=== PATIENT | female | born 1975 | race Caucasian/White ===

== ENCOUNTER → 2024-02-13 12:19 | Outpatient (CLI) | payer OTHER, SELFPAY ==
[2024-02-13 14:19] LABS: Influenza A - CEPHEID Flu A NEGATIVE (NEGATIVE); Influenza B - CEPHEID Flu B NEGATIVE (NEGATIVE); Respiratory Syncytial Virus Negative (Negative)
[2024-02-13 14:21] LABS: COVID-19 CEPHEID 4-PLEX PCR Negative (Negative)
== END ==
PROVIDERS: PCP Student in an Organized Health Care Education/Training Program; Visit Provider Physician Assistant
DX: J02.9 Acute pharyngitis, unspecified (principal); R05.1 Acute cough
CPT/HCPCS: 0241U; 87070

== ENCOUNTER → 2024-04-10 09:53 | Outpatient (CLI) | payer OTHER, SELFPAY ==
[2024-04-10 10:48] LABS: Add Manual Diff / Slide Review NO; Basophils Absolute Auto 0 /uL (0-100); Basophils Percent Auto 0.5 % (0-2); Eosinophils Absolute Auto 200 /uL (0-450); Eosinophils Percent Auto 1.9 % (2-4); Hematocrit 43.5 % (36-46); Hemoglobin 14.6 g/dL (12.0-16.0); Lymphocytes Absolute Auto 4600 /uL (1100-4500); Mean Corpuscular HGB Conc 33.4 % (30-36); Mean Corpuscular Hemoglobin 29.2 PG (26-34); Mean Corpuscular Volume 87.4 fL (80-100); Monocytes Absolute Auto 500 /uL (0-900); Monocytes Percent Auto 5.4 % (3-14); Neutrophils Absolute Auto 3900 /uL (1500-7000); Neutrophils Percent Auto 42.2 % (50-75); Platelet Count 230 X10^3/uL (150-400); Red Blood Cell Count 4.98 X10^6/uL (4.0-5.2); Red Cell Distribution Width 14.8 % (11.6-14.8); White Blood Cell Count 9.2 X10^3/uL (4.5-11.0)
[2024-04-10 11:14] LABS: Alanine Aminotransferase 21 IU/L (<35); Albumin Globulin Ratio 1.4 (1.0-2.8); Alkaline Phosphatase 71 U/L (38-126); Aspartate Aminotransferase 24 IU/L (14-36); BUN Creatinine Ratio 12.2 (6-22); Bilirubin Total 0.6 mg/dL (0.2-1.3); Blood Urea Nitrogen 9 mg/dL (7-17); Calcium 9.4 mg/dL (8.4-10.2); Carbon Dioxide 28 mmol/L (22-32); Chloride 108 mmol/L (98-107); Cholesterol 172 mg/dL (140-199); Estimated Glomerular Filt Rate > 60 mL/min (>60); Globulin 2.9 g/dL (1.7-4.1); Glucose 92 mg/dL (70-100); HDL Cholesterol 61 mg/dL (40-60); HEMOLYSIS < 15 (0-50); LDL Cholesterol Calculated 89 mg/dL (<100); Potassium 4.1 mmol/L (3.4-5.1); Sodium 140 mmol/L (137-145); Total Protein 6.9 g/dL (6.3-8.2); Triglycerides 110 mg/dL (35-150)
[2024-04-10 11:39] LABS: TSH w/ Reflex to FT4 2.67 uIU/mL (0.47-4.68)
== END ==
PROVIDERS: PCP Student in an Organized Health Care Education/Training Program; Referring Provider Student in an Organized Health Care Education/Training Program; Visit Provider Student in an Organized Health Care Education/Training Program
DX: I10 Essential (primary) hypertension (principal)
CPT/HCPCS: 36415; 80053; 80061; 84443; 85025

== ENCOUNTER 2024-05-10 14:58 | Observation (INO) | payer OTHER, SELFPAY ==
[2024-05-10] VITALS (13 sets, daily range): BP systolic 131–155; BP diastolic 72–95; PULSE 62–81; RESP 14–20; TEMP 36.8; O2SAT 91–98; BMI 31.3
--- NOTE | 2024-05-10 15:11 | DI.RAD.S_ITS ---
PROCEDURE: XR CHEST 2V INDICATIONS: chest pain TECHNIQUE: 2 views of the chest were acquired. COMPARISON: None. FINDINGS: Surgical changes and devices: Cholecystectomy clips. Lungs and pleura: Lungs are clear. No pleural effusions or pneumothorax. Mediastinum: Mediastinal contours are normal. Heart size is normal. Bones and chest wall: No suspicious bony abnormalities. Soft tissues appear unremarkable. IMPRESSION: No acute pulmonary process. Dictated by: Elisa Sanchez M.D. on 05/10/2024 at 16:20 Approved by: Elisa Sanchez M.D. on 05/10/2024 at 16:20
--- NOTE | 2024-05-10 15:16 | EKG_ITS ---
[place] [id number] [address] [place] [address] Test Date: 2024-05-10 Pat Name: Jessica Butts Department: Room: Gender: Female Med Aide: LINDA : 1975 Requested By: Order Number: [id number] Reading MD: Edgardo Butts Measurements Intervals [place] Rate: 75 P: 47 [place]: 134 QRS: 27 QRSD: 82 T: 39 QT: 390 QTc: 435 Interpretive Statements Normal sinus rhythm Electronically Signed On 05-12-2024 16:45:43 PDT by Edgardo Butts
[2024-05-10 15:37] LABS: Add Manual Diff / Slide Review NO; Basophils Absolute Auto 100 /uL (0-100); Basophils Percent Auto 0.9 % (0-2); Eosinophils Absolute Auto 200 /uL (0-450); Eosinophils Percent Auto 1.6 % (2-4); Lymphocytes Absolute Auto 3200 /uL (1100-4500); Lymphocytes Percent Auto 30.4 % (25-40); Mean Corpuscular HGB Conc 33.4 % (30-36); Mean Corpuscular Hemoglobin 28.9 PG (26-34); Mean Corpuscular Volume 86.7 fL (80-100); Monocytes Absolute Auto 500 /uL (0-900); Monocytes Percent Auto 5.1 % (3-14); Neutrophils Absolute Auto 6600 /uL (1500-7000); Platelet Count 257 X10^3/uL (150-400); Red Blood Cell Count 4.84 X10^6/uL (4.0-5.2); Red Cell Distribution Width 15.2 % (11.6-14.8); White Blood Cell Count 10.6 X10^3/uL (4.5-11.0)
[2024-05-10 15:42] LABS: INR 0.9 (0.9-1.3); Prothrombin Time 10.4 SECONDS (9.4-12.5)
[2024-05-10 15:45] LABS: PTT Partial Thromboplastin Tim 31 SECONDS (25.1-36.5)
[2024-05-10 15:46] LABS: Alanine Aminotransferase 21 IU/L (<35); Albumin Globulin Ratio 1.4 (1.0-2.8); Alkaline Phosphatase 78 U/L (38-126); Aspartate Aminotransferase 28 IU/L (14-36); Bilirubin Total 0.3 mg/dL (0.2-1.3); Blood Urea Nitrogen 6 mg/dL (7-17); Calcium 8.7 mg/dL (8.4-10.2); Carbon Dioxide 23 mmol/L (22-32); Chloride 112 mmol/L (98-107); Creatine Kinase 69 U/L (30-135); Estimated Glomerular Filt Rate > 60 mL/min (>60); Globulin 2.9 g/dL (1.7-4.1); Glucose 90 mg/dL (70-100); HEMOLYSIS < 15 (0-50); Lipase 233 U/L (23-300); Magnesium 2.1 mg/dL (1.6-2.3); Potassium 3.8 mmol/L (3.4-5.1); Sodium 141 mmol/L (137-145); Total Protein 6.9 g/dL (6.3-8.2)
[2024-05-10 15:57] LABS: NT-proBNP (BNP-Adult 18+) 85 pg/mL (<125); Troponin I < 0.012 ng/mL (0.01-0.034)
--- NOTE | 2024-05-10 18:46 | PC.NURSE ---
Pt states left sided CP that has been persistent over the weekend; pt states pain is worse upon inspiration. Pt states it has been uncomfortable at night sleeping. Pt states she has been seen at UC and ER; and was not given an explanation for CP. No rashes noted on skin; pt points to left side of chest and midline of back for pain. No rash or blisters noted on skin. Pt states she has had Chicken pox in the past. Pt states she is more curious to know what is causing her discomfort and is not interested in taking pain medicine
--- NOTE | 2024-05-10 19:30 | PC.NURSE ---
Pt frustrated and states that she feels no one is listening to her and that no one is giving her answers. Pt explained the blood test and radiology test that we are running and explanations. Pt still insisted to nurse that no one is listening.
[2024-05-10 19:40] LABS: Troponin I < 0.012 ng/mL (0.01-0.034)
--- NOTE | 2024-05-10 21:27 | ED.CHESTPAIN ---
HPI - Chest Pain General Chief Complaint: Chest Pain Stated Complaint: chest px sent by [facility] Time Seen by Provider: 05/10/24 21:27 Source: patient Mode of arrival: Family Vehicle Limitations: no limitations History of Present Illness HPI narrative: 49-year-old female with history of ongoing smoking, history of factor 5 Leiden deficiency, no chronic anticoagulation, with ongoing left anterior pleuritic chest pain since Friday05/07/2024, was seen at [facility] with evaluation that she thinks was negative, including CT of the chest study. She feels that she can not catch her breath with minimal walking, is not usually a problem for her. She says that they did not confirm any blood clots to the lung on her chest CT scan recent evaluation. No fevers or chills. No productive cough. No lower extremity edema. No leg pain or swelling. No known history of congestive heart failure. She was to follow up with her regular doctor for further testing as an outpatient, who referred her for further evaluation here since she is having ongoing chest pain symptoms, as well as ongoing dyspnea on exertion. Related Data Home Medications Medication Instructions Recorded Confirmed cetirizine 10 mg capsule (Zyrtec) 10 mg PO DAILY PRN 10/15/23 04/09/24 Previous Rx's Medication Instructions Recorded ondansetron 4 mg disintegrating 4 mg PO DAILY PRN nausea and 12/26/23 tablet vomiting #30 tabs varenicline 0.5 mg (11)-1 mg (42) See Rx Instructions PO PER PKG DIR 12/26/23 tablets in a dose pack #53 ea omeprazole 40 mg capsule,delayed 40 mg PO DAILY #90 caps 03/29/24 release hydroxyzine HCl 50 mg tablet 100 mg (2 x 50 mg) PO BEDTIME #30 04/09/24 tabs lisinopril 5 mg tablet 5 mg PO DAILY #90 tabs 04/09/24 Allergies Allergy/AdvReac Type Severity Reaction Status Date / Time succinylcholine Allergy Verified 05/10/24 15:19 Asprin Allergy Severe Hives Uncoded 05/10/24 15:17 Review of Systems Review of Systems Narrative: Per HPI Patient History Surgical History Hx of hysterectomy (~2009) H/O section Hx of appendectomy (~1998) Hx of cholecystectomy (~1998) Social History Smoking Status: Current every day smoker Smoking Status: Current every day smoker tobacco type: cigarettes alcohol intake frequency: holidays/special occasions only Substance Use Type: marijuana Exam Narrative Exam Narrative: GENERAL: Well-developed patient, in mild distress. HEAD: Atraumatic. Normocephalic. EYES: Pupils equal round and reactive. Extraocular motions intact. No scleral icterus. No injection or drainage. ENT: Nose without bleeding, purulent drainage. Throat without erythema, tonsillar hypertrophy or exudate. Airway patent. NECK: Trachea midline. Non tender CARDIOVASCULAR: Regular rate and rhythm without murmurs, gallops, or rubs. RESPIRATORY: Clear to auscultation. Breath sounds equal bilaterally. No wheezes, rales, or rhonchi. GASTROINTESTINAL: Abdomen soft, non-tender, nondistended. EXTREMITIES: No edema or joint tenderness. BACK: Nontender without deformity or crepitance. No flank tenderness. NEURO: AOx3. SKIN: No rash or erythema of visible areas Initial Vital Signs Initial Vital Signs: Vital Signs Temperature 98.2 F 05/10/24 15:06 Pulse Rate 81 05/10/24 15:06 Respiratory Rate 14 05/10/24 15:06 Blood Pressure 150/84 H 05/10/24 15:06 Pulse Oximetry 97 05/10/24 15:06 Oxygen Delivery Method Room Air 05/10/24 15:06 Course Orders Ordered: Acetaminophen (Acetaminophen 325 Mg Tablet) 650 mg PO Q6H PRN PRN Reason: Fever/Mild Pain (1-3) Albuterol (Albuterol 2.5 Mg/3 Ml Neb (Adult)) 2.5 mg INH [id number] PRN PRN Reason: Dyspnea Aspirin (Aspirin Ec 81 Mg Tablet) 81 mg PO DAILY CHUCHO Calcium Carbonate (Calcium Carbonate 500 Mg Tab) 1,000 mg PO Q4HR PRN PRN Reason: Dyspepsia Hydroxyzine HCl (Hydroxyzine Hcl 25 Mg Tablet) 100 mg PO BEDTIME CHUCHO Lisinopril (Lisinopril 5 Mg Tablet) 5 mg PO DAILY CHUCHO Melatonin (Melatonin 3 Mg Tablet) 9 mg PO BEDTIME PRN PRN Reason: insomnia Morphine Sulfate (Morphine 4 Mg/Ml Inj) 4 mg IV Q4HR PRN PRN Reason: Pain, Severe (7-10) Naloxone HCl (Naloxone 0.4 Mg/Ml Vial) 0.2 mg IV Q2MIN PRN PRN Reason: Opiate Reversal Ondansetron HCl (Ondansetron 4 Mg Odt) 4 mg PO DAILY PRN PRN Reason: nausea and vomiting Ondansetron HCl (Ondansetron 4 Mg/2 Ml Inj) 4 mg IV Q8HR PRN PRN Reason: Nausea And Vomiting Pantoprazole Sodium (Pantoprazole Dr 40 Mg Tablet) 40 mg PO DAILY CHUCHO Discontinued Medications Albuterol (Albuterol 2.5 Mg/3 Ml Neb (Adult)) 2.5 mg INH NOW ONE Stop: 05/10/24 21:53 Last Admin: 05/10/24 22:00 Dose: 2.5 mg Documented By: WHITLEY Aspirin (Aspirin 81 Mg Chew Tab) 324 mg PO NOW ONE Stop: 05/10/24 15:12 Last Admin: 05/10/24 22:07 Dose: Not Given Documented By: TAN Ketorolac Tromethamine (Ketorolac 30 Mg/Ml Vial) 15 mg IV NOW ONE Stop: 05/10/24 21:53 Last Admin: 05/10/24 22:08 Dose: 15 mg Documented By: TAN Vital Signs Vital signs: Vital Signs - 8 hr 05/10/24 15:06 05/10/24 19:20 05/10/24 19:30 Temperature 98.2 F Pulse Rate 81 74 Respiratory Rate 14 18 Blood Pressure 150/84 H 155/92 H Pulse Oximetry 97 97 Oxygen Delivery Method Room Air Oxygen Flow Rate Fraction of Inspired Oxygen 05/10/24 19:30 05/10/24 20:00 05/10/24 20:00 Temperature Pulse Rate 65 72 Respiratory Rate 17 Blood Pressure 143/81 H Pulse Oximetry 98 95 Oxygen Delivery Method Room Air Room Air Oxygen Flow Rate Fraction of Inspired Oxygen 05/10/24 20:30 05/10/24 20:30 05/10/24 21:00 Temperature Pulse Rate 66 65 Respiratory Rate 20 Blood Pressure 151/87 H Pulse Oximetry 95 98 Oxygen Delivery Method Room Air Room Air Oxygen Flow Rate Fraction of Inspired Oxygen 05/10/24 21:00 05/10/24 22:00 Temperature Pulse Rate 62 Respiratory Rate 18 16 Blood Pressure 140/79 Pulse Oximetry 98 Oxygen Delivery Method Room Air Oxygen Flow Rate 0 Fraction of Inspired Oxygen 21 MDM - Chest Pain Medical Records Data Attestation: I reviewed the patient's medical records. Lab Data Attestation: I reviewed the patient's lab results. 05/10/24 15:23 05/10/24 15:23 Labs: Lab Results 05/10/24 05/10/24 Range/Units 15:23 19:10 WBC 10.6 (4.5-11.0) X10^3/uL RBC 4.84 (4.0-5.2) X10^6/uL Hgb 14.0 (12.0-16.0) g/dL Hct 42.0 (36-46) % MCV 86.7 (80-100) fL MCH 28.9 (26-34) PG MCHC 33.4 (30-36) % RDW 15.2 H (11.6-14.8) % Plt Count 257 (150-400) X10^3/uL Neut % (Auto) 62.0 (50-75) % Lymph % (Auto) 30.4 (25-40) % [place] % (Auto) 5.1 (3-14) % Eos % (Auto) 1.6 L (2-4) % Baso % (Auto) 0.9 (0-2) % Neut # (Auto) 6600 (6012-9404) /uL Lymph # (Auto) 3200 (1739-0165) /uL [place] # (Auto) 500 (0-900) /uL Eos # (Auto) 200 (0-450) /uL Baso # (Auto) 100 (0-100) /uL PT 10.4 (9.4-12.5) SECONDS INR 0.9 (0.9-1.3) APTT 31 (25.1-36.5) SECONDS Sodium 141 (137-145) mmol/L Potassium 3.8 (3.4-5.1) mmol/L Chloride 112 H (98-107) mmol/L Carbon Dioxide 23 (22-32) mmol/L BUN 6 L (7-17) mg/dL Creatinine 0.67 (0.52-1.04) mg/dL Estimated GFR > 60 (>60) mL/min BUN/Creatinine Ratio 9.0 (6-22) Glucose 90 (70-100) mg/dL Calcium 8.7 (8.4-10.2) mg/dL Magnesium 2.1 (1.6-2.3) mg/dL Total Bilirubin 0.3 (0.2-1.3) mg/dL AST 28 (14-36) IU/L ALT 21 (<35) IU/L Alkaline Phosphatase 78 (38-126) U/L Total Creatine Kinase 69 (30-135) U/L Troponin I < 0.012 < 0.012 (0.01-0.034) ng/mL NT-Pro-B Natriuret Pep 85 (<125) pg/mL Total Protein 6.9 (6.3-8.2) g/dL Albumin 4.0 (3.5-5.0) g/dL Globulin 2.9 (1.7-4.1) g/dL Albumin/Globulin Ratio 1.4 (1.0-2.8) Lipase 233 (23-300) U/L TSH 2.86 (0.47-4.68) uIU/mL Imaging Data Chest x-ray: Radiologist's Impression: [place] [address] XRay Report Signed Patient: Jessica Butts MR#: [id number] : 1975 Acct:[id number] Age/Sex: 49 / F Date of Service: 05/10/24 Loc: ED Accession Number: [id number] Procedure: XR chest 2V Ordering Provider: Audelia Norton D.O. PROCEDURE: XR CHEST 2V INDICATIONS: chest pain TECHNIQUE: 2 views of the chest were acquired. COMPARISON: None. FINDINGS: Surgical changes and devices: Cholecystectomy clips. Lungs and pleura: Lungs are clear. No pleural effusions or pneumothorax. Mediastinum: Mediastinal contours are normal. Heart size is normal. Bones and chest wall: No suspicious bony abnormalities. Soft tissues appear unremarkable. IMPRESSION: No acute pulmonary process. Dictated by: Elisa Sanchez M.D. on 05/10/2024 at 16:20 Approved by: Elisa Sanchez M.D. on 05/10/2024 at 16:20 ECG Data Attestation: I personally reviewed and interpreted this ECG as follows: Interpretation: EKG shows normal sinus rhythm rate of 75, no obvious ST segment elevation or depression changes. Flat T-waves lead 3 noted. Upright T-waves however in leads 2 and F. MDM Narrative Medical decision making narrative: 49-year-old female with history of smoking, history of Leydig V deficiency, no chronic anticoagulation, has left chest pain for the last 3 days, workup apparently at outside facility was negative including CT chest imaging 3 days ago, still having chest pain, saw her PCP who referred her for further testing and evaluation. Chest x-ray today negative. EKG without obvious ischemic changes. Troponin initial and subsequent study while in waiting room negative. Records from [facility] visit requested, for review. Consider Cardiology consult. Records review. 05/07/2024 ED visit [facility] Andrea. Chest pain and history of factor 5 Leiden deficiency noted, at risk for pulmonary embolus, CT angiogram study showed no PE but did show small pleural effusion, possible bronchitis changes. EKG and troponin negative. Clinical impression was bronchitis and small pleural effusion, with plan for further workup as an outpatient. IV Toradol, SVN albuterol. We will consult Cardiology regarding further workup, inpatient versus outpatient, timing, etc. 2229, case discussed with Dr. Lentz, can be admitted for stress testing and echocardiogram to expedite workup, he can consult. 2234, case discussed with hospitalist Dr. Schrader, accepts patient for admission to observation Critical Care Time Critical Care Time Critical Care Time: Yes Total Critical Care Time: 35 Attestation: The high probability of a clinically significant, sudden or life threatening deterioration of the [cardiopulmonary] system(s) required my full and direct attention, intervention and personal management. The aggregate critical care time was [35] minutes. This time is in addition to time spent performing reported procedures but includes the following: [x] Data Review and interpretation [x] Patient assessment and monitoring of vital signs [x] Documentation [x] Medication orders and management Discharge Plan Departure Patient Disposition: Admitted as Observation Clinical Impression: Chest pain, Exertional shortness of breath Admit Date/Time: 05/10/24 22:43 Admit Provider: Syed Meléndez
--- NOTE | 2024-05-10 21:40 | PC.NURSE ---
Patient not wanting to be on the heart monitor. Explained why we would need it, but patient refuses.
[2024-05-10] MEDS: ALBUTEROL 2.5 MG/3 ML NEB (ADULT) INH (22:00)
[2024-05-10] MEDS: KETOROLAC 30 MG/ML VIAL 15 MG IV (22:08)
--- NOTE | 2024-05-10 23:45 | PC.NURSE ---
Patient used her call light and is very upset about waiting. States i shouldn't have come here, take me off all the monitors. Dr. Salcido notifed, aware. Dr. Salcido spoke with patient. Dr. Salcido gave OK to have patient eat and drink. Water, sandwich and cheese provided. Patient looked at it and states I'm not eating that, leave me alone and close the door. I don't want anyone in here and will call if I need anything. All monitors removed. Patient's call light in reach.
--- NOTE | 2024-05-11 00:36 | PC.NURSE ---
This nurse tried to draw a troponin using the patient's PIV, the PIV did not draw blood back. Patient upset saying what's the point of having it if it doesn't work. This nurse explained that the PIV's do not always give blood but we use to give medications. optometric tech called for lab draw.
[2024-05-11 01:02] LABS: Cholesterol 159 mg/dL (140-199); HDL Cholesterol 64 mg/dL (40-60); LDL Cholesterol Calculated 81 mg/dL (<100); Triglycerides 69 mg/dL (35-150)
[2024-05-11 01:09] LABS: Thyroid Stimulating Hormone 2.86 uIU/mL (0.47-4.68)
[2024-05-11 01:14] LABS: Troponin I < 0.012 ng/mL (0.01-0.034)
--- NOTE | 2024-05-11 02:04 | PC.NURSE ---
Notified Dr. Meléndez notified that patient refusing to be on rn cardiac rehab. Dr. Meléndez aware, no new orders.
--- NOTE | 2024-05-11 02:12 | PC.NURSE ---
Patient refusing to have vitals taken. Patient expressing extreme frustration that no one offered her a gown. Apologized, offered her a gown, patient declined. Dr. Meléndez notified that patient does not want her vitals taken.
--- NOTE | 2024-05-11 03:33 | PM.HP.1 ---
History of Present Illness History of Present Illness Chief complaint: chest px sent by [facility] Narrative: 49 years old female with history of factor V Leyden deficiency not on any anticoagulation therapy, smoking half a pack a day, hypertension, obesity, presents to the ER with ongoing left anterior pleural chest pain since Friday. Initially she was seen in [place] emergency department on and was evaluated for HI including chest study for PE but the workup was negative. Yesterday she saw her primary doctor again for the ongoing chest pain and she was referred to the ED for further evaluation. Denies any shortness of breath, fever, cough, nausea, vomiting, abdominal pain, diarrhea or dysuria. Currently chest pain-free. Her laboratory was essentially unremarkable, chest x-ray unremarkable and EKG unremarkable. Initial troponin is negative. She was given Toradol and albuterol. Cardiology was consulted and recommended admission for stress test and echo. [facility] Surgical History Hx of hysterectomy (~2009) H/O section Hx of appendectomy (~1998) Hx of cholecystectomy (~1998) Social History (System 10/16/23 @ 10:28 by Lady Viktoria Guillen) Smoking Status: Current every day smoker Meds Home Medications and Allergies Home Medications Medication Instructions Recorded Confirmed Type cetirizine 10 mg capsule (Zyrtec) 10 mg PO DAILY PRN 10/15/23 04/09/24 History ondansetron 4 mg disintegrating 4 mg PO DAILY PRN nausea and 12/26/23 04/09/24 Rx tablet vomiting #30 tabs varenicline 0.5 mg (11)-1 mg (42) See Rx Instructions PO PER PKG DIR 12/26/23 04/09/24 Rx tablets in a dose pack #53 ea omeprazole 40 mg capsule,delayed 40 mg PO DAILY #90 caps 03/29/24 04/09/24 Rx release hydroxyzine HCl 50 mg tablet 100 mg (2 x 50 mg) PO BEDTIME #30 04/09/24 04/09/24 Rx tabs lisinopril 5 mg tablet 5 mg PO DAILY #90 tabs 04/09/24 Rx Allergies Allergy/AdvReac Type Severity Reaction Status Date / Time succinylcholine Allergy Verified 05/10/24 15:19 Asprin Allergy Severe Hives Uncoded 05/10/24 15:17 Review of Systems Review of Systems ROS: Yes All systems reviewed with the patient and are negative except as otherwise documented Constitutional Constitutional: Reports as per HPI and Reports system reviewed and no additional complaints, except as documented Eyes Eyes: Reports as per HPI and Reports system reviewed and no additional complaints, except as documented ENT Ears, Nose, Mouth, and Throat: Yes as per HPI and Yes system reviewed and no additional complaints, except as documented Cardiovascular Cardiovascular: Reports system reviewed and no additional complaints, except as documented Respiratory Respiratory: Reports system reviewed and no additional complaints, except as documented Gastrointestinal Gastrointestinal: Reports system reviewed and no additional complaints, except as documented Genitourinary Genitourinary: Reports system reviewed and no additional complaints, except as documented Musculoskeletal Musculoskeletal: Reports system reviewed and no additional complaints, except as documented, Reports abnormal gait and Reports numbness Neurologic Neurologic: Reports system reviewed and no additional complaints, except as documented, Reports abnormal gait, Reports confusion and Reports numbness Psychiatric Psychiatric: Reports system reviewed and no additional complaints, except as documented and Reports confusion Exam Vital Signs (past 8 hours): - 05/10/24 20:00 05/10/24 20:00 05/10/24 20:30 Pulse Rate 72 66 Respiratory Rate 17 20 Blood Pressure 143/81 H Pulse Oximetry 95 95 Oxygen Delivery Method Room Air Room Air Oxygen Flow Rate Fraction of Inspired Oxygen 05/10/24 20:30 05/10/24 21:00 05/10/24 21:00 Pulse Rate 65 Respiratory Rate 18 Blood Pressure 151/87 H 140/79 Pulse Oximetry 98 Oxygen Delivery Method Room Air Oxygen Flow Rate Fraction of Inspired Oxygen 05/10/24 21:44 05/10/24 22:00 05/10/24 22:00 Pulse Rate 66 62 63 Respiratory Rate 16 Blood Pressure Pulse Oximetry 91 98 98 Oxygen Delivery Method Room Air Oxygen Flow Rate 0 Fraction of Inspired Oxygen 21 05/10/24 22:13 05/10/24 22:13 05/10/24 22:30 Pulse Rate 68 68 Respiratory Rate Blood Pressure 152/82 H Pulse Oximetry 95 94 Oxygen Delivery Method Room Air Room Air Oxygen Flow Rate Fraction of Inspired Oxygen 05/10/24 22:30 05/10/24 23:00 05/10/24 23:00 Pulse Rate 67 Respiratory Rate Blood Pressure 132/72 131/77 Pulse Oximetry 94 Oxygen Delivery Method Room Air Oxygen Flow Rate Fraction of Inspired Oxygen 05/10/24 23:29 05/10/24 23:30 Pulse Rate 66 Respiratory Rate Blood Pressure 138/95 H Pulse Oximetry 98 Oxygen Delivery Method Room Air Oxygen Flow Rate Fraction of Inspired Oxygen Fraction of Inspired Oxygen 21 SaO2/FiO2 Ratio 466 Oxygen Delivery Method Room Air Oxygen Flow Rate 0 Const General: cooperative, comfortable and well developed Orientation: alert and oriented x3 HENMT Head: normal to inspection, normocephalic and atraumatic Face and sinus: normal facial exam Mouth: oral mucosae normal and moist mucous membranes Throat: posterior oropharynx normal Eyes General: appearance normal, both eyes and all related structures Pupils: PERRL EOM: EOM intact bilaterally Neck Neck: normal visual inspection and full ROM Chest Chest: normal inspection of the chest Resp Effort & Inspection: normal respiratory effort and able to speak in complete sentences Auscultation: clear to auscultation bilaterally Cardio Palpation: normal PMI Rate: regular rate Rhythm: regular rhythm Heart Sounds: S1 normal and S2 normal GI Inspection: normal to inspection Palpation: soft and no hepatosplenomegaly Auscultation: normal bowel sounds Skin General: no rashes or lesions noted Lesions: no lesions Rashes: no rashes Trauma: no lacerations or abrasions Neuro General: patient alert, patient awake, patient oriented x3 and no focal motor deficits Cranial Nerves: CN's II-XI intact bilaterally Cognition: normal cognition Speech: speech normal Gait: normal gait Motor: muscle tone normal throughout Sensory Exam: no sensory deficits noted Extrem General: full ROM and no calf tenderness Psych Appearance: grossly normal Mental Status: mental status grossly normal Speech and Movement: speech and movement normal Objective Labs 05/10/24 15:23 05/10/24 15:23 Labs: Laboratory Results - last 24 hr 05/10/24 05/10/24 05/11/24 15:23 19:10 00:38 WBC 10.6 RBC 4.84 Hgb 14.0 Hct 42.0 MCV 86.7 MCH 28.9 MCHC 33.4 RDW 15.2 H Plt Count 257 Neut % (Auto) 62.0 Lymph % (Auto) 30.4 [place] % (Auto) 5.1 Eos % (Auto) 1.6 L Baso % (Auto) 0.9 Neut # (Auto) 6600 Lymph # (Auto) 3200 [place] # (Auto) 500 Eos # (Auto) 200 Baso # (Auto) 100 PT 10.4 INR 0.9 APTT 31 Sodium 141 Potassium 3.8 Chloride 112 H Carbon Dioxide 23 BUN 6 L Creatinine 0.67 Estimated GFR > 60 BUN/Creatinine Ratio 9.0 Glucose 90 Calcium 8.7 Magnesium 2.1 Total Bilirubin 0.3 AST 28 ALT 21 Alkaline Phosphatase 78 Total Creatine Kinase 69 Troponin I < 0.012 < 0.012 < 0.012 NT-Pro-B Natriuret Pep 85 Total Protein 6.9 Albumin 4.0 Globulin 2.9 Albumin/Globulin Ratio 1.4 Triglycerides Cholesterol LDL Cholesterol, Calc HDL Cholesterol Lipase 233 TSH 2.86 05/11/24 00:39 WBC RBC Hgb Hct MCV MCH MCHC RDW Plt Count Neut % (Auto) Lymph % (Auto) [place] % (Auto) Eos % (Auto) Baso % (Auto) Neut # (Auto) Lymph # (Auto) [place] # (Auto) Eos # (Auto) Baso # (Auto) PT INR APTT Sodium Potassium Chloride Carbon Dioxide BUN Creatinine Estimated GFR BUN/Creatinine Ratio Glucose Calcium Magnesium Total Bilirubin AST ALT Alkaline Phosphatase Total Creatine Kinase Troponin I NT-Pro-B Natriuret Pep Total Protein Albumin Globulin Albumin/Globulin Ratio Triglycerides 69 Cholesterol 159 LDL Cholesterol, Calc 81 HDL Cholesterol 64 H Lipase TSH Assessment & Plan Assessment & Plan narrative: Atypical chest pain: Will admit for trending trops and rule out ACS. -ASA, nitro sl prn; oxygen prn; morphine as needed -Tele-monitoring, -If unstable will consider nitro/heparin and consult cardiology -If trops negaAve x 2 and no active chest pain order stress test in am if stable; -2D echo if not already done ; -NPO after midnight except for water and apple juice in am; -No caffeine effective immediately and no beta-michael in the morning Hypertension. Restart lisinopril GERD. Restart omeprazole Smoking. Will hold nicotine patch due to chest pain. Time-Based Coding :: [TOTAL MINUTES] spent with patient and on the chart (including review of chart, obtaining history, exam, reviewing outside data, placing orders, documenting exam and treatment plan, and counseling patient) on [DATE]. Quality VTE Deep Vein Thrombosis/Pulmonary Embolism Present on Admission: No MIPS - Admit I confirm the patient?s Advance Care Plan is present, Code status is documented, Surrogate decision maker is in patient?s record [If Yes, STOP here]: Yes [facility] - Meds 'Current medications' to include all prescriptions, [id number] products, herbals, cannabis/cannabidiol products, and vitamin/mineral/dietary (nutritional) supplements. I have utilized all available resources to obtain, update, or review the patient?s current medications. [If Yes, STOP here]: Yes
--- NOTE | 2024-05-11 07:00 | PC.NURSE ---
Patient refused to have her labs taken this morning.
--- NOTE | 2024-05-11 07:18 | P.HP_ITS ---
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 Initially she was seen in [place] emergency department on and was evaluated for [place] including chest study for PE but the workup was negative. Yesterday she saw her primary doctor again for the ongoing chest pain and she was referred to the ED for further evaluation. Denies any shortness of breath, fever, cough, nausea, vomiting, abdominal pain, diarrhea or dysuria. Currently chest pain- free. Her laboratory was essentially unremarkable, chest x-ray unremarkable and EKG unremarkable. Initial troponin is negative. She was given Toradol and albuterol. Cardiology was consulted and recommended admission for stress test and echo. S: Not obtained, the patient left emergency department at 8:15 a.m. in the morning and declined further evaluation and we will follow up with her primary care doctor. [facility] Surgical History Hx of hysterectomy (~2009) H/O section Hx of appendectomy (~1998) Hx of cholecystectomy (~1998) Social History Smoking Status: Current every day smoker Meds Home Medications and Allergies Home Medications Medication Instructions Recorded Confirmed Type cetirizine 10 mg capsule (Zyrtec) 10 mg PO DAILY PRN 10/15/23 04/09/24 History ondansetron 4 mg disintegrating 4 mg PO DAILY PRN nausea and 12/26/23 04/09/24 Rx tablet vomiting #30 tabs varenicline 0.5 mg (11)-1 mg (42) See Rx Instructions PO PER PKG DIR 12/26/23 04/09/24 Rx tablets in a dose pack #53 ea omeprazole 40 mg capsule,delayed 40 mg PO DAILY #90 caps 03/29/24 04/09/24 Rx release hydroxyzine HCl 50 mg tablet 100 mg (2 x 50 mg) PO BEDTIME #30 04/09/24 04/09/24 Rx tabs lisinopril 5 mg tablet 5 mg PO DAILY #90 tabs 04/09/24 Rx Allergies Allergy/AdvReac Type Severity Reaction Status Date / Time succinylcholine Allergy Verified 05/10/24 15:19 Asprin Allergy Severe Hives Uncoded 05/10/24 15:17 Review of Systems Review of Systems Narrative: Not obtained. Exam Vital Signs (past 8 hours): - 05/10/24 23:29 05/10/24 23:30 Pulse Rate 66 Blood Pressure 138/95 H Pulse Oximetry 98 Oxygen Delivery Method Room Air Fraction of Inspired Oxygen 21 SaO2/FiO2 Ratio 466 Oxygen Delivery Method Room Air Oxygen Flow Rate 0 Narrative Exam Narrative: Patient left prior to being evaluated. Objective ECG Impression: EKG shows normal sinus rhythm rate of 75, no obvious ST segment elevation or depression changes. Flat T-waves lead 3 noted. Upright T-waves however in leads 2 and F. Imaging Chest x-ray: Radiologist's impression: No acute pulmonary process. Labs 05/10/24 15:23 05/10/24 15:23 Labs: Laboratory Results - last 24 hr 05/10/24 05/10/24 05/11/24 15:23 19:10 00:38 WBC 10.6 RBC 4.84 Hgb 14.0 Hct 42.0 MCV 86.7 MCH 28.9 MCHC 33.4 RDW 15.2 H Plt Count 257 Neut % (Auto) 62.0 Lymph % (Auto) 30.4 [place] % (Auto) 5.1 Eos % (Auto) 1.6 L Baso % (Auto) 0.9 Neut # (Auto) 6600 Lymph # (Auto) 3200 [place] # (Auto) 500 Eos # (Auto) 200 Baso # (Auto) 100 PT 10.4 INR 0.9 APTT 31 Sodium 141 Potassium 3.8 Chloride 112 H Carbon Dioxide 23 BUN 6 L Creatinine 0.67 Estimated GFR > 60 BUN/Creatinine Ratio 9.0 Glucose 90 Calcium 8.7 Magnesium 2.1 Total Bilirubin 0.3 AST 28 ALT 21 Alkaline Phosphatase 78 Total Creatine Kinase 69 Troponin I < 0.012 < 0.012 < 0.012 NT-Pro-B Natriuret Pep 85 Total Protein 6.9 Albumin 4.0 Globulin 2.9 Albumin/Globulin Ratio 1.4 Triglycerides Cholesterol LDL Cholesterol, Calc HDL Cholesterol Lipase 233 TSH 2.86 05/11/24 00:39 WBC RBC Hgb Hct MCV MCH MCHC RDW Plt Count Neut % (Auto) Lymph % (Auto) [place] % (Auto) Eos % (Auto) Baso % (Auto) Neut # (Auto) Lymph # (Auto) [place] # (Auto) Eos # (Auto) Baso # (Auto) PT INR APTT Sodium Potassium Chloride Carbon Dioxide BUN Creatinine Estimated GFR BUN/Creatinine Ratio Glucose Calcium Magnesium Total Bilirubin AST ALT Alkaline Phosphatase Total Creatine Kinase Troponin I NT-Pro-B Natriuret Pep Total Protein Albumin Globulin Albumin/Globulin Ratio Triglycerides 69 Cholesterol 159 LDL Cholesterol, Calc 81 HDL Cholesterol 64 H Lipase TSH Assessment & Plan Assessment & Plan narrative: 1. Atypical chest pain: Will admit for trending trops and rule out ACS. -ASA, nitro sl prn; oxygen prn; morphine as needed -Tele-monitoring, -If unstable will consider nitro/heparin and consult cardiology -If trops negaAve x 2 and no active chest pain order stress test in am if stable; -2D echo if not already done ; -NPO after midnight except for water and apple juice in am; -No caffeine effective immediately and no beta-michael in the morning 2. Hypertension. Restart lisinopril 3. GERD. Restart omeprazole 4. Smoking. Will hold nicotine patch due to chest pain. PLAN: The patient left the emergency department where she was being boarded in the morning. The patient was not seen by me prior to leaving. She left abruptly and declined further evaluation stating she will follow up with her PCP for an outpatient stress test. Observation status, 1 night of care anticipated. Full resuscitation. Time-Based Coding :: Patient not seen. Quality VTE Deep Vein Thrombosis/Pulmonary Embolism Present on Admission: No
--- NOTE | 2024-05-11 07:43 | PC.NURSE ---
AGRICULTURAL PILOT Note: Advised by registration staff that patient called the hospital line and requested that no staff enter her room. She only wishes to see a patient advocate. Nurse advised of patient request.
--- NOTE | 2024-05-11 08:17 | PC.NURSE ---
Pt declining care, declines staff in her room, declines labs, declined nuc med testing. ED Director in pt room 2x this am to discuss issues with pt. Pt to be discharged this am, once hospitalist prepares d/c orders. ED physician aware.
--- NOTE | 2024-05-11 08:24 | PC.NURSE ---
Was asked to go and speak with the patient because she refusing all care and very angry. Introduced myself and listened to her issues with her care last night. Was extremely upset with not getting compassion from staff and doc. Staff and doc made good notes of their interactions last night. She states she would stay if stress test was done right now. They can't do the test until 1300. Patient requests to leave AMA. Notified Hospitalist.
[2024-05-11 08:26] VITALS: BP 170/91; PULSE 88; RESP 18; O2SAT 99
--- NOTE | 2024-05-11 08:45 | P.DS_ITS ---
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 Initially she was seen in [place] emergency department on and was evaluated for [place] including chest study for PE but the workup was negative. Yesterday she saw her primary doctor again for the ongoing chest pain and she was referred to the ED for further evaluation. Denies any shortness of breath, fever, cough, nausea, vomiting, abdominal pain, diarrhea or dysuria. Currently chest pain- free. Her laboratory was essentially unremarkable, chest x-ray unremarkable and EKG unremarkable. Initial troponin is negative. She was given Toradol and albuterol. Cardiology was consulted and recommended admission for stress test and echo. S: Not obtained, the patient left emergency department at 8:15 a.m. in the morning and declined further evaluation and we will follow up with her primary care doctor. Discharge Providers Provider Date of admission: 05/10/24 22:43 Discharge Date: 05/11/24 Primary care physician: Acacia Morales MD Consults: None. Discharge provider: Edgardo Butts MD Summary Hospital Course Discharge Diagnosis: Patient left prior to being evaluated by me in the morning at 8:15 a.m. from the emergency department. She was boarded there overnight. Hospital Course: Patient left prior to being evaluated by me in the morning at 8:15 a.m. from the emergency department. She was boarded there overnight. Status at Discharge Cognitive/behavioral status at discharge: oriented Functional status at discharge: independent ambulation Overall status at discharge: patient is back to baseline Time Spent with Patient Time spent: Less than 30 minutes Exam Vital Signs (past 8 hours): - 05/11/24 08:26 Pulse Rate 88 Respiratory Rate 18 Blood Pressure 170/91 H Pulse Oximetry 99 Oxygen Delivery Method Room Air Fraction of Inspired Oxygen 21 SaO2/FiO2 Ratio 466 Oxygen Delivery Method Room Air Oxygen Flow Rate 0 Narrative Exam Narrative: Not seen. Objective Labs 05/10/24 15:23 05/10/24 15:23 Labs: Laboratory Results - last 24 hr 05/10/24 05/10/24 05/11/24 15: 19:10 00:38 WBC 10.6 RBC 4.84 Hgb 14.0 Hct 42.0 MCV 86.7 MCH 28.9 MCHC 33.4 RDW 15.2 H Plt Count 257 Neut % (Auto) 62.0 Lymph % (Auto) 30.4 [place] % (Auto) 5.1 Eos % (Auto) 1.6 L Baso % (Auto) 0.9 Neut # (Auto) 6600 Lymph # (Auto) 3200 [place] # (Auto) 500 Eos # (Auto) 200 Baso # (Auto) 100 PT 10.4 INR 0.9 APTT 31 Sodium 141 Potassium 3.8 Chloride 112 H Carbon Dioxide 23 BUN 6 L Creatinine 0.67 Estimated GFR > 60 BUN/Creatinine Ratio 9.0 Glucose 90 Calcium 8.7 Magnesium 2.1 Total Bilirubin 0.3 AST 28 ALT 21 Alkaline Phosphatase 78 Total Creatine Kinase 69 Troponin I < 0.012 < 0.012 < 0.012 NT-Pro-B Natriuret Pep 85 Total Protein 6.9 Albumin 4.0 Globulin 2.9 Albumin/Globulin Ratio 1.4 Triglycerides Cholesterol LDL Cholesterol, Calc HDL Cholesterol Lipase 233 TSH 2.86 05/11/24 00:39 WBC RBC Hgb Hct MCV MCH MCHC RDW Plt Count Neut % (Auto) Lymph % (Auto) [place] % (Auto) Eos % (Auto) Baso % (Auto) Neut # (Auto) Lymph # (Auto) [place] # (Auto) Eos # (Auto) Baso # (Auto) PT INR APTT Sodium Potassium Chloride Carbon Dioxide BUN Creatinine Estimated GFR BUN/Creatinine Ratio Glucose Calcium Magnesium Total Bilirubin AST ALT Alkaline Phosphatase Total Creatine Kinase Troponin I NT-Pro-B Natriuret Pep Total Protein Albumin Globulin Albumin/Globulin Ratio Triglycerides 69 Cholesterol 159 LDL Cholesterol, Calc 81 HDL Cholesterol 64 H Lipase [facility] Surgical History Hx of hysterectomy (~2009) H/O section Hx of appendectomy (~1998) Hx of cholecystectomy (~1998) Social History Smoking Status: Current every day smoker Discharge Assessment & Plan Assessment and Plan Assessment: Patient lost prior to being seen. No consider this to be against medical advice as she was admitted by the night physician with a plan for risk stratification with a stress test and an echo. Plan of Treatment: She left without being seen. Discharge Plan Discharge Plan Patient Disposition: Home Provider Discharge Comment: Patient left without being seen after being boarded in the emergency department overnight. Discharge orders & Medications Prescriptions: Continued Zyrtec 10 mg capsule 10 mg PO DAILY PRN ondansetron 4 mg tablet,disintegrating 4 mg PO DAILY PRN (Reason: nausea and vomiting) Qty: 30 0RF varenicline 0.5 mg (11)- 1 mg (42) tablets,dose pack See Rx Instructions PO PER PKG DIR Qty: 53 0RF Rx Instructions: PO PER PKG DIR hydroxyzine HCl 50 mg tablet 100 mg PO BEDTIME Qty: 30 3RF omeprazole 40 mg capsule,delayed release(DR/EC) 40 mg PO DAILY Qty: 90 0RF lisinopril 5 mg tablet 5 mg PO DAILY Qty: 90 3RF Follow up/Referrals: Acacia Morales MD [Primary Care Provider] - Visit Report/Discharge Packet Stand Alone Forms: Patient Portal/API, Work/Release Restrictions Discharge Data Primary Care Provider: Acacia Morales Attending Provider: Syed Meléndez Admit Date/Time: 05/10/24 22:43 Quality VTE Deep Vein Thrombosis/Pulmonary Embolism Present on Admission: No
== END 2024-05-11 08:39 | disposition home or self-care (01) ==
LOC: ED 21:27 → AC 22:44
PROVIDERS: Emergency Medicine; Admitting Provider Internal Medicine; Emergency Provider Emergency Medicine; PCP Student in an Organized Health Care Education/Training Program; Referring Provider Emergency Medicine; Visit Provider Internal Medicine
DX: R07.9 Chest pain, unspecified (principal); R06.02 Shortness of breath; I10 Essential (primary) hypertension; K21.9 Gastro-esophageal reflux disease without esophagitis; F17.210 Nicotine dependence, cigarettes, uncomplicated; Z53.29 Procedure and treatment not carried out because of patient's decision for other reasons
CPT/HCPCS: 36415; 71046; 80053; 80061; 82550; 83690; 83735; 83880; 84443; 84484; 85025; 85610; 85730; 93005; 94640; 96374; 99284; G0378; J1885; J7613

== ENCOUNTER → 2024-05-14 09:05 | Outpatient (CLI) | payer OTHER, SELFPAY ==
[2024-05-14 10:13] LABS: Add Manual Diff / Slide Review NO; Basophils Absolute Auto 100 /uL (0-100); Basophils Percent Auto 0.7 % (0-2); Eosinophils Absolute Auto 200 /uL (0-450); Eosinophils Percent Auto 2.2 % (2-4); Hematocrit 39.6 % (36-46); Hemoglobin 13.3 g/dL (12.0-16.0); Lymphocytes Absolute Auto 4800 /uL (1100-4500); Mean Corpuscular HGB Conc 33.6 % (30-36); Mean Corpuscular Hemoglobin 28.9 PG (26-34); Mean Corpuscular Volume 85.9 fL (80-100); Monocytes Absolute Auto 700 /uL (0-900); Monocytes Percent Auto 6.4 % (3-14); Neutrophils Absolute Auto 4600 /uL (1500-7000); Neutrophils Percent Auto 44.7 % (50-75); Platelet Count 269 X10^3/uL (150-400); Red Blood Cell Count 4.61 X10^6/uL (4.0-5.2); Red Cell Distribution Width 15.3 % (11.6-14.8); White Blood Cell Count 10.4 X10^3/uL (4.5-11.0)
[2024-05-14 10:28] LABS: Alanine Aminotransferase 17 IU/L (<35); Albumin 3.9 g/dL (3.5-5.0); Albumin Globulin Ratio 1.3 (1.0-2.8); Alkaline Phosphatase 81 U/L (38-126); Aspartate Aminotransferase 24 IU/L (14-36); BUN Creatinine Ratio 11.8 (6-22); Bilirubin Total 0.4 mg/dL (0.2-1.3); Blood Urea Nitrogen 8 mg/dL (7-17); Calcium 9.2 mg/dL (8.4-10.2); Carbon Dioxide 25 mmol/L (22-32); Chloride 108 mmol/L (98-107); Estimated Glomerular Filt Rate > 60 mL/min (>60); Globulin 2.9 g/dL (1.7-4.1); Glucose 88 mg/dL (70-100); HEMOLYSIS < 15 (0-50); Lipase 225 U/L (23-300); Potassium 3.9 mmol/L (3.4-5.1); Sodium 140 mmol/L (137-145); Total Protein 6.8 g/dL (6.3-8.2)
== END ==
PROVIDERS: PCP Student in an Organized Health Care Education/Training Program; Referring Provider Student in an Organized Health Care Education/Training Program; Visit Provider Student in an Organized Health Care Education/Training Program
DX: R10.9 Unspecified abdominal pain (principal)
CPT/HCPCS: 36415; 80053; 83690; 85025

== ENCOUNTER → 2024-06-24 06:50 | Outpatient (CLI) | payer OTHER, SELFPAY ==
--- NOTE | 2024-06-24 06:51 | DI.ECHO.S_ITS ---
[facility]+ [facility] : : [address] : : [place] : : [id number] : : Phone: [phone] Echocardiogram Report + + :Name: SAUL FALCON Study Date: 06/24/2024 Height: 63 in : :[facility] ReadingLocation: Weight: 179 lb : : Gender: Female BSA: 1.8 m2 : :: 1975 Age: 49 yrs BP: 151/96 mmHg: :Reason For Study: CARDIOMEGALY : :Ordering Physician: JERMAINE, : :PAULO Performed By: Kalyan Jorgensen : :Referring: PAULO DEAN : + + Interpretation Summary 1) Normal left ventricular thickness, size, wall motion, and systolic function (EF 60-65%). 2) Normal right ventricular size and function. 3) No significant valvular abnormalities. 4) No prior Echo available for comparison. Procedure: A two-dimensional transthoracic echocardiogram with color flow and Doppler was performed. The study quality was technically adequate. There is no prior echocardiogram noted for this patient. The patient was in sinus rhythm with heart rates between 63-81 bpm during the exam. Left Ventricle: The left ventricle is normal in size and wall thickness. The ejection fraction is estimated to be 60-65%. Left ventricular systolic function appears normal without focal wall motion abnormalities. Diastolic parameters suggest a relaxation abnormality of the left ventricle, consistent with probable normal filling pressures. Right Ventricle: The right ventricle is normal size. The right ventricular systolic function is normal. Atria: The left atrial size is normal. Right atrial size is normal. The interatrial septum grossly appears intact with no obvious evidence for an atrial septal defect. Mitral Valve: The mitral valve is normal. There is no mitral valve stenosis. There is no mitral regurgitation noted. Aortic Valve: The aortic valve is trileaflet. There is no aortic valve stenosis. No aortic regurgitation is present. Tricuspid Valve: The tricuspid valve is normal. There is no tricuspid stenosis. No tricuspid regurgitation. Pulmonary artery pressures cannot be estimated because of the lack of a measurable TR jet velocity. Pulmonic Valve: The pulmonic valve is not well visualized. There is no pulmonic valvular stenosis. There is no pulmonic valvular regurgitation. Great Vessels: The aortic root is normal size. The dimensions of the ascending aorta are normal. The IVC is of normal diameter and collapses greater than 50% with a sniff. This suggests a low right atrial pressure of 3 mm Hg. Pericardium/ Pleura There is no pericardial effusion. There is no pleural effusion. MMode/2D Measurements & Calculations LVIDd: 4.9 cm LVOT diam: 2.0 cm LVIDs: 3.0 cm Ao root diam: 3.2 cm FS: 39.9 % asc Aorta Diam: 3.1 cm IVSd: 0.92 cm Ao Arch Diam (Prox Trans): 2.1 cm LVPWd: 0.84 cm LV weber. diameter/BSA (cm/m^2): 2.7 LV sys. diameter/BSA (cm/m^2): 1.6 LA A2 area: 18.6 cm2 RA long axis: 4.7 cm LA A4 area: 21.7 cm2 RA area: 16.0 cm2 LA length (vol): 5.9 cm RA vol: 46.1 ml LA vol: 57.7 ml RA : 25.0 ml/m2 LA vol index: 31.3 ml/m2 IVC diam: 1.5 cm RVD1 (basal): 3.4 cm RVD2 (mid): 3.0 cm Doppler Measurements & Calculations Ao V2 max: 155.3 cm/sec LVOT Max Marek: 125.3 cm/sec Ao V2 mean: 102.0 cm/sec LV V1 max P.3 mmHg Ao max P.7 mmHg LV V1 VTI: 26.8 cm Ao mean P.7 mmHg CARMELA(I,D): 2.6 cm2 Ao V2 VTI: 31.1 cm CARMELA(V,D): 2.4 cm2 sev ratio: 0.86 CARMELA indexed to BSA (cm^2/m^2): 1.4 MV E max marek: 77.2 cm/sec PA V2 max: 104.7 cm/sec MV A max marek: 83.3 cm/sec PA V2 mean: 68.8 cm/sec MV E/A: 0.93 PA mean P.2 mmHg Med Peak E' Marek: 8.6 cm/sec PA pr(Accel): 31.0 mmHg E/E' med: 9.0 Lat Peak E' Marek: 11.1 cm/sec E/E' lat: 7.0 E/e' average: 8.0 MV dec time: 0.22 sec SV(LVOT): 80.9 ml Reading Physician:09:06 AM
== END ==
PROVIDERS: PCP Student in an Organized Health Care Education/Training Program; Referring Provider Student in an Organized Health Care Education/Training Program; Visit Provider Student in an Organized Health Care Education/Training Program
DX: I51.7 Cardiomegaly (principal)
CPT/HCPCS: 93306

== ENCOUNTER → 2024-08-20 08:32 | Outpatient (CLI) | payer OTHER, SELFPAY ==
[2024-08-20 09:14] LABS: Add Manual Diff / Slide Review NO; Basophils Absolute Auto 0 /uL (0-100); Basophils Percent Auto 0.3 % (0-2); Eosinophils Absolute Auto 200 /uL (0-450); Eosinophils Percent Auto 2.4 % (2-4); Hematocrit 41.5 % (36-46); Hemoglobin 13.9 g/dL (12.0-16.0); Lymphocytes Absolute Auto 4300 /uL (1100-4500); Lymphocytes Percent Auto 49.5 % (25-40); Mean Corpuscular HGB Conc 33.5 % (30-36); Mean Corpuscular Hemoglobin 29.3 PG (26-34); Mean Corpuscular Volume 87.3 fL (80-100); Monocytes Absolute Auto 600 /uL (0-900); Monocytes Percent Auto 6.3 % (3-14); Neutrophils Absolute Auto 3600 /uL (1500-7000); Neutrophils Percent Auto 41.5 % (50-75); Platelet Count 246 X10^3/uL (150-400); Red Blood Cell Count 4.75 X10^6/uL (4.0-5.2); White Blood Cell Count 8.7 X10^3/uL (4.5-11.0)
[2024-08-20 09:34] LABS: HEMOLYSIS < 15 (0-50); Iron 88 ug/dL (37-170)
[2024-08-20 09:36] LABS: Creatinine Urine Random 152.28 mg/dL
[2024-08-20 09:38] LABS: Alanine Aminotransferase 16 IU/L (<35); Albumin 3.9 g/dL (3.5-5.0); Albumin Globulin Ratio 1.4 (1.0-2.8); Alkaline Phosphatase 72 U/L (38-126); Aspartate Aminotransferase 22 IU/L (14-36); Bilirubin Total 0.5 mg/dL (0.2-1.3); Blood Urea Nitrogen 12 mg/dL (7-17); Calcium 9.7 mg/dL (8.4-10.2); Carbon Dioxide 29 mmol/L (22-32); Chloride 107 mmol/L (98-107); Estimated Glomerular Filt Rate > 60 mL/min (>60); Globulin 2.7 g/dL (1.7-4.1); Glucose 98 mg/dL (70-100); HEMOLYSIS < 15 (0-50); Potassium 4.3 mmol/L (3.4-5.1); Sodium 141 mmol/L (137-145); Total Protein 6.6 g/dL (6.3-8.2)
[2024-08-20 09:41] LABS: Microalbumin Urine Random 1.7 mg/dL (0-1.6)
[2024-08-20 09:46] LABS: Percent Iron Saturation 31 % (15-50); Total Iron Binding Capacity 288 ug/dL (265-497); Transferrin 224 mg/dL (206-381)
[2024-08-20 10:11] LABS: Ferritin 28 ng/mL (6-137)
[2024-08-20 10:42] LABS: Folate 4.7 ng/mL (2.76-20.0); Vitamin B12 326 pg/mL (239-931)
[2024-08-20 10:45] LABS: Erythrocyte Sedimentation Rate 1 MM/HR (0-20)
== END ==
PROVIDERS: PCP Student in an Organized Health Care Education/Training Program; Referring Provider Student in an Organized Health Care Education/Training Program; Visit Provider Student in an Organized Health Care Education/Training Program
DX: R20.0 Anesthesia of skin (principal); R20.2 Paresthesia of skin; I10 Essential (primary) hypertension; K44.9 Diaphragmatic hernia without obstruction or gangrene; G62.9 Polyneuropathy, unspecified; R23.2 Flushing
CPT/HCPCS: 36415; 80053; 82043; 82570; 82607; 82728; 82746; 83540; 83550; 85025; 85651

== ENCOUNTER → 2025-03-07 12:23 | Outpatient (CLI) | payer OTHER, SELFPAY ==
--- NOTE | 2025-03-07 12:29 | DI.MRI.S_ITS ---
PROCEDURE: MR ANGIO ABDOMEN WO/W CON INDICATIONS: Abdominal Pain TECHNIQUE: Precontrast axial, coronal, and sagittal TruFISP acquired through the abdomen and pelvis. Dynamic coronal MRA using Care Bolus timing of the abdomen and pelvis during the administration of contrast, with 3-dimensional maximum intensity projection (MIP) reformats performed. COMPARISON: [facility], CT, CT ABDOMEN PELVIS WITH CONTRAST, 01/31/2025, 14:37. FINDINGS: Image quality: Excellent. Mesenteric and renal arteries: Celiac, superior mesenteric, inferior mesenteric arteries are patent. There are 2 left renal arteries which are patent. Single right renal artery is patent. Aorta: Aorta is normal in caliber and enhancement. Extravascular soft tissues: Visualized solid organs are normal in size on limited pre-contrast images. Gallbladder is not seen. Bowel loops are normal in caliber. No free fluid. No retroperitoneal or mesenteric adenopathy by size criteria. No ventral hernias. Bones: Marrow is normal in overall signal. IMPRESSION: No evidence mesenteric ischemia. Dictated by: Phu Nichols M.D. on 03/08/2025 at 9:38 Approved by: Phu Nichols M.D. on 03/08/2025 at 9:40
== END ==
PROVIDERS: Family Provider Student in an Organized Health Care Education/Training Program; PCP Student in an Organized Health Care Education/Training Program; Referring Provider Student in an Organized Health Care Education/Training Program; Visit Provider Student in an Organized Health Care Education/Training Program
DX: R10.12 Left upper quadrant pain (principal)
CPT/HCPCS: C8902; A9579

== ENCOUNTER → 2025-03-19 08:29 | Outpatient (CLI) | payer OTHER, SELFPAY ==
--- NOTE | 2025-03-19 08:30 | DI.CT.S_ITS ---
PROCEDURE: CT ABDOMEN PELVIS W CON INDICATIONS: LUQ abd pain after paraesophageal hernia repair x3 mo TECHNIQUE: Oral contrast was given in this patient. After the administration of intravenous contrast, axial sections acquired from the lung bases to the pubic symphysis. Coronal and sagittal reformats were performed. For radiation dose reduction, the following was used: automated exposure control, adjustment of mA and/or kV according to patient size. COMPARISON: [facility], CT, CT ABDOMEN PELVIS WITH CONTRAST, 01/31/2025, 14:37. [facility], CT, CT ANGIO CHEST PE, 02/23/2025, 0:53. FINDINGS: Image quality: Diagnostic. Lower Chest: No significant findings. ABDOMEN: Liver: No solid mass. Diffuse fatty liver infiltration is noted. Gallbladder: Cholecystectomy. Biliary ducts: No biliary dilation. Pancreas: No ductal dilation. Spleen: Size is within normal limits. Adrenal Glands: No adrenal nodules. Kidneys and Ureters: No hydronephrosis. No solid mass. No complex renal cystic lesion which requires follow up. Stomach and Bowel: Postoperative change of the gastroesophageal junction can be seen. No postoperative complication is identified. No free air or significant free fluid can be seen. No dilated loops of small bowel are seen. No significant colonic abnormality is seen. Peritoneum: No abnormal intraperitoneal fluid. No free air. Ventral Wall: No significant ventral hernia. Abdominal Nodes: No retroperitoneal or mesenteric adenopathy by size criteria. Vessels: Aorta and inferior vena cava are normal in size. PELVIS: Pelvic Organs: No adnexal masses are seen on either side. Bladder: No bladder wall thickening, accounting for underdistention. Pelvic Nodes: No enlarged lymph nodes. Miscellaneous: No inguinal hernias are seen. Bones: No aggressive osseous abnormality. Focal L5-S1 degenerative change is seen. Milder degenerative changes are seen elsewhere. IMPRESSION: Postoperative change of the gastroesophageal junction, without new postoperative complication seen. Additional findings: Fatty liver infiltration Cholecystectomy Focal L5-S1 degenerative change Dictated by: Judson Waggoner M.D. on 03/19/2025 at 9:11 Approved by: Judson Waggoner M.D. on 03/19/2025 at 9:16
--- NOTE | 2025-03-19 08:30 | DI.MG.S_ITS ---
MM screening mammo BI: 03/19/2025. BI-RADS: 0 CLINICAL: 50-year old female for bilateral screening mammogram. Tyrer-Cuzick lifetime risk of 7.3%. No personal or first-degree family history of breast cancer. PRIOR EXAMS No prior examinations available. MAMMOGRAPHY TECHNIQUE: 2D and 3D (tomosynthesis) digital mammographic views obtained, with additional images as needed for full coverage. Current study was also evaluated with a Computer Aided Detection (CAD) system. DENSITY C. The breasts are heterogeneously dense, which may obscure small masses. MAMMOGRAPHY FINDINGS Right: CC only, Inner, Posterior depth: There is an asymmetry present. Additional imaging evaluation needed. Right: MLO only, Central, Middle depth: Possible asymmetry is noted. Additional imaging evaluation needed. Left: No suspicious mass, asymmetry, microcalcification, or other abnormality seen. IMPRESSION: Right (Asymmetry): CC only, Inner, Posterior depth * Incomplete - Needs additional imaging evaluation. Right: MLO only, Central, Middle depth * Incomplete - Needs additional imaging evaluation. Left * No evidence of malignancy. RECOMMENDATIONS Right * Further evaluation with diagnostic mammography and diagnostic ultrasound. Ultrasound to be performed only if needed. OVERALL ASSESSMENT CATEGORY BI-RADS-0: Incomplete - Need Additional Imaging Evaluation. ELECTRONICALLY SIGNED: Evaristo Laws M.D. on 03/21/2025 at 07:25:46 AM PT Interpreting Station ID: [id number]
== END ==
LOC: CT 08:30
PROVIDERS: Family Provider Student in an Organized Health Care Education/Training Program; PCP Student in an Organized Health Care Education/Training Program; Referring Provider Student in an Organized Health Care Education/Training Program; Visit Provider Student in an Organized Health Care Education/Training Program
DX: Z12.31 Encounter for screening mammogram for malignant neoplasm of breast (principal); R92.333 Mammographic heterogeneous density, bilateral breasts; R10.12 Left upper quadrant pain; K76.0 Fatty (change of) liver, not elsewhere classified; M47.817 Spondylosis without myelopathy or radiculopathy, lumbosacral region; Z90.49 Acquired absence of other specified parts of digestive tract
CPT/HCPCS: 74177; 77063; 77067; Q9967

== ENCOUNTER → 2025-03-25 09:23 | Outpatient (CLI) | payer OTHER, SELFPAY ==
[2025-03-25 10:13] LABS: Add Manual Diff / Slide Review NO; Basophils Absolute Auto 0 /uL (0-100); Basophils Percent Auto 0.5 % (0-2); Eosinophils Absolute Auto 200 /uL (0-450); Eosinophils Percent Auto 1.7 % (2-4); Hematocrit 40.4 % (36-46); Hemoglobin 13.4 g/dL (12.0-16.0); Lymphocytes Absolute Auto 4100 /uL (1100-4500); Lymphocytes Percent Auto 39.9 % (25-40); Mean Corpuscular HGB Conc 33.3 % (30-36); Monocytes Absolute Auto 600 /uL (0-900); Neutrophils Absolute Auto 5300 /uL (1500-7000); Neutrophils Percent Auto 51.9 % (50-75); Platelet Count 231 X10^3/uL (150-400); Red Blood Cell Count 4.64 X10^6/uL (4.0-5.2); Red Cell Distribution Width 15.1 % (11.6-14.8); White Blood Cell Count 10.2 X10^3/uL (4.5-11.0)
[2025-03-25 10:29] LABS: Alanine Aminotransferase 16 IU/L (<35); Albumin 4.2 g/dL (3.5-5.0); Albumin Globulin Ratio 1.6 (1.0-2.8); Alkaline Phosphatase 64 U/L (38-126); Aspartate Aminotransferase 25 IU/L (14-36); BUN Creatinine Ratio 17.6 (6-22); Bilirubin Total 0.4 mg/dL (0.2-1.3); Blood Urea Nitrogen 13 mg/dL (7-17); Calcium 9.7 mg/dL (8.4-10.2); Carbon Dioxide 29 mmol/L (22-32); Chloride 104 mmol/L (98-107); Estimated Glomerular Filt Rate > 60 mL/min (>60); Globulin 2.7 g/dL (1.7-4.1); Glucose 62 mg/dL (70-99); HEMOLYSIS < 15 (0-50); Lipase 294 U/L (23-300); Potassium 4.1 mmol/L (3.4-5.1); Sodium 140 mmol/L (137-145); Total Protein 6.9 g/dL (6.3-8.2)
== END ==
PROVIDERS: PCP Student in an Organized Health Care Education/Training Program; Referring Provider Student in an Organized Health Care Education/Training Program; Visit Provider Student in an Organized Health Care Education/Training Program
DX: R10.9 Unspecified abdominal pain (principal)
CPT/HCPCS: 36415; 80053; 83690; 85025

== ENCOUNTER → 2025-04-11 08:05 | Outpatient (CLI) | payer OTHER, SELFPAY ==
--- NOTE | 2025-04-11 08:06 | DI.MG.S_ITS ---
MM diagnostic mammo unilat RT, US breast RT limited: 04/11/2025 BI-RADS: 2 CLINICAL: 50-year old female for right diagnostic mammogram and right diagnostic breast ultrasound that is a recall from screening on 03/19/2025. Tyrer-Cuzick lifetime risk of 7.3%. No personal or first-degree family history of breast cancer. PRIOR EXAMS Mammogram(s): 03/19/2025. MAMMOGRAPHY TECHNIQUE: 2D and 3D (tomosynthesis) digital mammographic views obtained, with additional images as needed for full coverage. Current study was also evaluated with a Computer Aided Detection (CAD) system. ULTRASOUND TECHNIQUE Real-time perez scale imaging of the area of clinical interest was performed with image documentation. DENSITY Right: C. The breasts are heterogeneously dense, which may obscure small masses. MAMMOGRAPHY FINDINGS Right: CC only, Inner: Correlating with findings on screening mammogram, there is an asymmetry present. This asymmetry appears less prominent. Right: MLO only, Central, Middle depth: Correlating with findings on screening mammogram, there is an asymmetry present. This focal asymmetry appears less prominent. ULTRASOUND FINDINGS Right: Upper Inner at 2:00, 10 cm from nipple. Previous report: CC only, Inner: There is no sonographic correlate for the mammographic finding which likely represent summation artifact secondary to a tortuous turn of a vessel. No suspicious sonographic finding with typically benign findings noted. Right: MLO only, Central: There is no sonographic correlate for the mammographic finding. Findings likely represent summation artifact of fibroglandular tissue. No suspicious sonographic finding with typically benign findings noted. IMPRESSION: Right * No evidence of malignancy with benign findings. RECOMMENDATIONS Bilateral * Annual screening mammography. COMMENTS: Findings and recommendations were conveyed to the patient during today's evaluation. OVERALL ASSESSMENT CATEGORY BI-RADS-2: Benign. [employer] recommends annual screening mammography beginning at age 40 for women with average risk of breast cancer. ELECTRONICALLY SIGNED: Evaristo Laws M.D. on 04/11/2025 at 10:16:14 AM PT Interpreting Station ID: [id number]
== END ==
LOC: MAMMO 08:06
PROVIDERS: PCP Student in an Organized Health Care Education/Training Program; Referring Provider Student in an Organized Health Care Education/Training Program; Visit Provider Student in an Organized Health Care Education/Training Program
DX: R92.8 Other abnormal and inconclusive findings on diagnostic imaging of breast (principal); R92.331 Mammographic heterogeneous density, right breast
CPT/HCPCS: 76642; 77065; G0279

== ENCOUNTER → 2025-05-06 08:00 | Outpatient (CLI) | payer OTHER, SELFPAY ==
[2025-05-06 08:21] LABS: Hemoglobin A1C% w Est Avg Glu 5.4 % (4.0-6.0)
[2025-05-06 09:00] LABS: Cortisol AM (Before 10AM) 6.46 ug/dL (4.46-22.7)
== END ==
PROVIDERS: PCP Student in an Organized Health Care Education/Training Program; Referring Provider Student in an Organized Health Care Education/Training Program; Visit Provider Student in an Organized Health Care Education/Training Program
DX: E16.2 Hypoglycemia, unspecified (principal)
CPT/HCPCS: 36415; 82533; 83036

== ENCOUNTER 2025-10-18 07:09 | Day surgery (SDC) | payer OTHER, SELFPAY ==
[2025-10-06 14:14] VITALS: BMI 31.8
--- NOTE | 2025-10-18 06:01 | PM.HP.IH.1 ---
History of Present Illness History of Present Illness Date Patient Seen: 10/18/25 Chief complaint: Dx lapw/poss lysis of adhesions Narrative: Patient presents for diagnostic laparoscopy today for possible lysis of adhesions. REPLACED BY [facility] Medical History (Updated 10/06/25 @ 12:22 by Evelina Angulo, RN) Kidney stone (01/29/24) Anxiety and depression DVT (deep venous thrombosis) (1993) Pseudocholinesterase deficiency Surgical History (Updated 10/06/25 @ 13:58 by Evelina Angulo RN) S/P repair of paraesophageal hernia (2023) History of total abdominal hysterectomy (2011) H/O section Hx of appendectomy (~1998) Hx of cholecystectomy (~1998) Social History Smoking Status: Current every day smoker Meds Home Medications and Allergies Home Medications ?Medication ?Instructions ?Recorded ?Confirmed ?Type cetirizine 10 mg capsule (Zyrtec) 10 mg PO DAILY PRN 10/15/23 09/14/25 History varenicline tartrate 0.5 mg (11)-1 See Rx Instructions PO PER PKG DIR 02/17/25 09/14/25 Rx mg (42) tablets in a dose pack #53 ea cephalexin 500 mg tablet 500 mg PO BID #10 tabs 09/01/25 09/14/25 Rx fezolinetant 45 mg tablet (Veozah) 45 mg PO DAILY #30 tabs 09/01/25 09/14/25 Rx lisinopril 5 mg tablet 5 mg PO DAILY #30 tabs 09/01/25 09/14/25 Rx zolpidem 10 mg tablet (Ambien) 10 mg PO BEDTIME PRN insomnia #30 09/01/25 09/14/25 Rx tabs amitriptyline 25 mg tablet 25 mg PO BEDTIME 09/14/25 09/14/25 History omeprazole 20 mg capsule,delayed 20 mg PO DAILY 10/06/25 10/06/25 History release Allergies Allergy/AdvReac Type Severity Reaction Status Date / Time succinylcholine Allergy Verified 09/14/25 09:58 Asprin Allergy Severe Hives Uncoded 09/14/25 09:58 Exam Narrative Exam Narrative: Const General: healthy appearing, comfortable and no acute distress Orientation: alert and oriented x3 HENMT Ears: hearing grossly normal bilaterally Eyes Visual Baker: normal visual baker by confrontation Conjunctivae: conjunctivae normal Sclera: sclerae normal EOM: EOM intact bilaterally Resp Effort & Inspection: normal respiratory effort and able to speak in complete sentences Cardio Rate: regular rate GI Palpation: soft, healed robotic Talia scars, non-peritoneal exam, mild LUQ tenderness to palpation Extrem General: no pedal edema and no calf tenderness Assessment & Plan Assessment and plan (1) Abdominal pain: Qualifiers: Abdominal location: left upper quadrant Qualified Code(s): R10.12 - Left upper quadrant pain Status: Acute Plan Persistent left upper quadrant pain that is impacting her quality of life. Extensive testing to date has not revealed a specific etiology. We discuss at length the risks, benefits and options regarding diagnostic laparoscopy with possible laparoscopic lysis of adhesions. She is aware that this is very subjective and certainly there is no guarantee of improvement. She is aware that some patients will not see improvement even with lysis of adhesions. At a minimum it will give us additional information and visual inspection of the area. After our risk discussion, she would like to proceed with diagnostic laparoscopy, possible lysis of adhesions. The risks, benefits and options regarding the procedure were explained to the patient in detail. Risk discussion included but not limited to: bleeding, infection, injury to other organs, unresolved symptoms. The patient was encouraged to ask questions and they were answered to their satisfaction. The patient understands and is agreeable to proceed. Time-Based Coding :: [TOTAL MINUTES] spent with patient and on the chart (including review of chart, obtaining history, exam, reviewing outside data, placing orders, documenting exam and treatment plan, and counseling patient) on [DATE]. 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
[2025-10-18] MEDS: LACTATED RINGERS 1,000 ML 42 ML IV (08:00)
[2025-10-18] MEDS: ACETAMINOPHEN 325 MG TABLET 975 MG PO (08:01)
[2025-10-18 08:06] VITALS: BP 132/88; PULSE 84; RESP 18; TEMP 36.8; O2SAT 98
[2025-10-18] MEDS: SCOPOLAMINE 1 PATCH TOP (08:52)
--- NOTE | 2025-10-18 09:21 | SUR.OPER ---
Supine on padded OR bed, head on pillow, arms secured on padded arm boards at <90 degrees abduction, legs uncrossed, safety belt at thigh, tape over blanket over lower legs.
[2025-10-18] MEDS: BUPivacaine 0.25% W/ EPI (PF) 30 ML VIAL 60 ML INJ (09:33)
--- NOTE | 2025-10-18 10:16 | P.OP_ITS ---
Operative Date/Time/Diagnoses Date of procedure: 10/18/25 Time of procedure: 10:16 Pre-op diagnosis: LUQ pain due to adhesions Post-op diagnosis: same Procedure & Clinicians Procedure: Diagnostic laparoscopy, laparoscopic lysis of adhesions (21 minutes) Same procedure(s) as scheduled: Yes Indications: Chronic LUQ pain with negative imaging studies Surgeon: Andriy Wilson Assisted?: Yes Mill Beam Fitter: Pablo Clayton Anesthesia Type: General Operative Notes Findings: Midline omental adhesions in lower abd; no significant adhesions in LUQ Specimen(s): none sent Applied: none Estimated Blood Loss (mL): 5 Blood products transfused: none Procedure in detail: After informed consent and satisfactory general anesthesia, the abdomen was prepped and draped in the usual sterile manner. The patient received appropriate preoperative antibiotics and DVT prophylaxis. Surgical time-out was performed with all team members in agreement. The pneumoperitoneum was established under direct vision using the Zuniga trocar cutdown technique. We reused prior laparoscopic scars so no new scars were created. An 0 Vicryl [id number] suture with 0 Ethibond was placed in the anterior rectus sheath. The rectus musculature was bluntly and the posterior rectus sheath and peritoneum were divided between 2 hemostats with Metzenbaum scissors. The abdominal cavity was insufflated to a pressure of 15 mmHg with carbon dioxide gas. The 5 mm 30 degree lens was inserted and no trauma secondary to trocar insertion was noted. We placed 2 additional 5 mm trocars under direct vision. The patient was placed in reverse Trendelenburg position. Diagnostic laparoscopy demonstrated no significant adhesions in the left upper quadrant. The wrap appeared to be intact. The anterior surface of the liver, stomach and spleen were unremarkable. The anterior surface of the lower viscera was unremarkable as well. She did have omental adhesions to the midline and these were taken down to the extent a clear plane was available for Metzenbaum scissors. These adhesions were not in the location of her pain. STARLA Clayton when he worked with this group at [facility] was aware of discomfort patients would have in one of the trocar incisions related to the suture. We chose the cutdown at this trocar site in hopes of finding a suture granuloma and alleviating her pain in this manner but no suture granuloma was found. She was painful there on palpation before anesthesia. With this, the pneumoperitoneum was released. The trocars were removed. There was no bleeding noted at the trocar sites. The 0 Vicryl [id number] suture in the anterior rectus sheath was tied and there were no palpable fascial defects. The skin incisions were closed using 4-0 Monocryl in a subcuticular manner. Dermabond glue was applied as a final dressing.We had placed bilateral laparoscopic TAP blocks injecting 25 cc of 0.25% Marcaine with epinephrine into the transversus abdominis muscle bilaterally for preemptive analgesia. The remaining local was injected in the skin incisions for the trocars and in the musculature at the largest trocar site at the end of the procedure. The instrument sponge and needle counts were all correct x2. The estimated blood loss was minimal. The patient tolerated the procedure well and was extubated in the operating room and transported to the recovery area in stable condition. Complications: none Post-operative Condition: stable Disposition: PACU Plan for aftercare: PACU then home
[2025-10-18 10:20] VITALS: BP 119/67; PULSE 97; RESP 15; TEMP 37; O2SAT 95
[2025-10-18 10:25] VITALS: BP 135/65; PULSE 86; RESP 18; O2SAT 95
[2025-10-18 10:31] VITALS: BP 116/59; PULSE 95; RESP 18; O2SAT 97
[2025-10-18 10:40] VITALS: BP 128/64; PULSE 89; RESP 12; O2SAT 94
[2025-10-18] MEDS: fentaNYL 100 MCG/2 ML INJ 25 MCG IV ×4 (10:41→10:52)
[2025-10-18 10:54] VITALS: BP 123/59; PULSE 91; RESP 18; O2SAT 94
== END 2025-10-18 11:24 | disposition home or self-care (01) ==
PROVIDERS: PCP Student in an Organized Health Care Education/Training Program; Referring Provider Student in an Organized Health Care Education/Training Program; Visit Provider Surgery
PROC: (CPT 49320; principal; 2025-10-18 09:15)
DX: K66.0 Peritoneal adhesions (postprocedural) (postinfection) (principal); R10.12 Left upper quadrant pain; I10 Essential (primary) hypertension; F17.210 Nicotine dependence, cigarettes, uncomplicated; F41.9 Anxiety disorder, unspecified; F32.A Depression, unspecified; D68.51 Activated protein C resistance; E66.9 Obesity, unspecified; Z68.31 Body mass index [BMI] 31.0-31.9, adult
CPT/HCPCS: 58660; J0689; J1100; J1885; J2250; J2405; J2704; J3010; J3490; J7120